=== PATIENT | female | born 1970 | race Caucasian/White ===

== ENCOUNTER 2019-01-17 01:49 | Emergency (ER) | payer OTHER ==
[~2019-01-17] VITALS: Ht 165.1 cm; Wt 55.8 kg
[2019-01-17] MEDS ORDERED: PREDNISONE50 MG PO (03:13)
[2019-01-17 03:22] VITALS: BP 108/62
[2019-01-17] MEDS ORDERED: ATIVAN0.5 M1 PO (03:22)
== END 2019-01-17 03:36 | disposition home or self-care (01) ==
LOC: M.ERS 01:49
DX: T78.49XA Other allergy, initial encounter (principal); Y92.89 Other specified places as the place of occurrence of the external cause; Z88.0 Allergy status to penicillin; Z88.8 Allergy status to other drugs, medicaments and biological substances